=== PATIENT | male | born 1990 | race Caucasian/White ===

== ENCOUNTER 2019-04-18 11:00 | Emergency (ER) | payer OTHER ==
[2019-02-27 12:18] VITALS: BP 140/92
[2019-04-18] MEDS ORDERED: LIDOCAINE HCL 1% PF 300MG/30ML VIAL ONE (11:10)
[2019-04-18] MEDS ORDERED: NAPROXEN 250 MG TABLET ONE (11:10)
--- NOTE | 2019-05-09 09:51 | Diagnostic Imaging Report ---
KELLIE DEVLIN [facility] [id number] [id number] Report Submission Date: Apr 18, 2019 12:02:19 PM CDT Patient Study Name: MARK ANTHONY MARVIN Date: Apr 18, 2019 11:26:03 AM CDT Modality Type: DX Gender: M Description: FINGER 2 VIEWS OR MORE : 89 Institution: [facility] Physician: KELLIE DEVLIN Exam:?Left fingers 3 views Indication: LEFT 3RD DIGIT, LACERATION AFTER INJURY (Hx) / Note time : 04/18/2019 11:55:04 AM User : Chen Campa LEFT 3RD DIGIT, LACERATION AFTER INJURY (DICOM Hx) (DICOM Hx) ? Findings:? 3 views of the left fingers were obtained with attention to the third digit. No acute fracture, subluxation, dislocation or other osseous abnormality is identified. Gauze dressing superimposes the third digit. If clinical symptoms persist follow up examination may be warranted to exclude an occult process. Impression: No acute osseous abnormality. Electronically signed on Apr 18, 2019 12:02:19 PM CDT by: Rashawn DELGADO
== END 2019-04-18 12:45 | disposition home or self-care (01) ==
LOC: ED 11:00
DX: S61.213A Laceration without foreign body of left middle finger without damage to nail, initial encounter (principal); W45.8XXA Other foreign body or object entering through skin, initial encounter
CPT/HCPCS: 73130; 99282; 99283; J2001; J7030